=== PATIENT | male | born 1980 | race Caucasian/White ===

== ENCOUNTER 2019-08-05 18:25 | Emergency (ER) | payer OTHER ==
[~2019-08-05] VITALS: Ht 172.7 cm; Wt 88.6 kg
[~2019-08-05 18:25] MED LIST: HYDR-4383 PO
[2019-08-05 18:26] VITALS: BP 180/115
[2019-08-05] MEDS ORDERED: LIDOcaine 1% W/epiNEPHrine 1:200,000 10ml vial IJ ONE (18:30)
[2019-08-05] MEDS ORDERED: acetaminophen 325mg tablet PO ONE (18:40)
== END 2019-08-05 19:05 ==
LOC: ER 18:25
DX: S01.01XA Laceration without foreign body of scalp, initial encounter (principal); W22.8XXA Striking against or struck by other objects, initial encounter; Y93.67 Activity, basketball; Y92.89 Other specified places as the place of occurrence of the external cause; Y99.9 Unspecified external cause status
CPT/HCPCS: 12002; 99283